=== PATIENT | male | born 1980 | race African-American/Black ===

== ENCOUNTER 2018-03-31 10:27 | Emergency (ER) | payer OTHER ==
[~2018-03-31] VITALS: Ht 182.9 cm; Wt 100.0 kg
[~2018-03-31 10:27] MED LIST: NOCURR
[2018-03-31] MEDS: TraMADol HCL 50 MG TABLET PO ONE ×2 (12:28→12:33)
[2018-03-31] MEDS ORDERED: HYDROCODONE/ACETAMINOPHEN 5-325 MG TABLET PO ONE (12:45)
[2018-03-31 12:52] VITALS: BP 146/98
== END 2018-03-31 13:05 | disposition home or self-care (01) ==
LOC: EMS 10:32
DX: K02.9 Dental caries, unspecified (principal); I10 Essential (primary) hypertension; F17.210 Nicotine dependence, cigarettes, uncomplicated
CPT/HCPCS: 99282